=== PATIENT | male | born 1935 | race Caucasian/White ===

== ENCOUNTER 2017-01-29 18:13 | Emergency (ER) | payer MEDICARE ==
[2017-01-29 19:31] LABS: HEMOGLOBIN 11.3 gm/dl (14.0-17.5); RED BLOOD COUNT 3.5 M/UL (4.20-5.50); WHITE BLOOD COUNT 12.2 K/UL (4.5-11.0)
== END 2017-01-29 21:30 | disposition home or self-care (01) ==
LOC: ER1 18:13
PROVIDERS: Preventive Medicine Occupational Medicine
DX: L03.116 Cellulitis of left lower limb (principal); C61 Malignant neoplasm of prostate; L03.115 Cellulitis of right lower limb
CPT/HCPCS: 36415; 80048; 85025; 96365; 96366; 99283; J0696; J7050

== ENCOUNTER 2017-02-11 17:03 | Emergency (ER) | payer MEDICARE | END 2017-02-12 05:12 | disposition home or self-care (01) | LOC: ER1 17:03 | DX: S42.91XA Fracture of right shoulder girdle, part unspecified, initial encounter for closed fracture (principal); I10 Essential (primary) hypertension; C61 Malignant neoplasm of prostate; W01.198A Fall on same level from slipping, tripping and stumbling with subsequent striking against other object, initial encounter | CPT/HCPCS: 70450; 71250; 72125; 73030; 99284 ==